=== PATIENT | male | born 1950 | race African-American/Black ===

== ENCOUNTER 2017-08-17 10:38 | Emergency (ER) | payer SELFPAY ==
[~2017-08-17] VITALS: Ht 170.2 cm; Wt 86.0 kg
[~2017-08-17 10:38] MED LIST: AMLO-512 PO; GABA-326 PO
[2017-08-17] MEDS ORDERED: PERTUSS(ACELL),DIPH,TET VAC/PF 0.5 ML VIAL IM ONE (10:45)
[2017-08-17] MEDS ORDERED: LISI-660 PO (10:47)
[2017-08-17 10:48] VITALS: BP 162/95
== END 2017-08-17 11:20 | disposition short-term general hospital (02) ==
LOC: EMS 10:39
DX: S21.212A Laceration without foreign body of left back wall of thorax without penetration into thoracic cavity, initial encounter (principal); M19.90 Unspecified osteoarthritis, unspecified site; I10 Essential (primary) hypertension; W26.8XXA Contact with other sharp object(s), not elsewhere classified, initial encounter; Y93.89 Activity, other specified; Y92.89 Other specified places as the place of occurrence of the external cause; Y99.8 Other external cause status
CPT/HCPCS: 90471; 90715; 99285